=== PATIENT | male | born 1975 ===

== ENCOUNTER 2021-10-18 10:54 | Outpatient (CLI) | payer OTHER | END 2021-10-18 10:55 | disposition short-term general hospital (02) | LOC: EMS 10:54 | DX: M79.605 Pain in left leg (principal); R10.30 Lower abdominal pain, unspecified; M54.9 Dorsalgia, unspecified; M25.511 Pain in right shoulder; M25.551 Pain in right hip; R06.02 Shortness of breath; R11.0 Nausea; W20.1XXA Struck by object due to collapse of building, initial encounter; Y93.H3 Activity, building and construction; Y92.009 Unspecified place in unspecified non-institutional (private) residence as the place of occurrence of the external cause; Y99.0 Civilian activity done for income or pay | CPT/HCPCS: A0425; A0427 ==